=== PATIENT | female | born 1970 | race African-American/Black ===

== ENCOUNTER 2017-03-14 18:26 | Emergency (ER) | payer MEDICARE, OTHER ==
[~2017-03-14] VITALS: Ht 167.6 cm; Wt 64.4 kg
[~2017-03-14 18:26] MED LIST: AMITRYPTYLINE PO; BACLOFEN10 MG PO; CLARITIN10 MG PO; FLONASE16 GM; NEURONTIN PO; TRAZODONE PO; [UNRECOGNIZED DRUG - OTHER]
== END 2017-03-14 19:08 | disposition home or self-care (01) ==
LOC: CFTX 18:26 → CED 18:26 → CFTX 18:59
DX: K08.89 Other specified disorders of teeth and supporting structures (principal); R51 Headache; I10 Essential (primary) hypertension; G35 Multiple sclerosis
CPT/HCPCS: 96372; 99282; J1885